=== PATIENT | female | born 1975 | race Caucasian/White ===

== ENCOUNTER 2019-07-08 08:31 | Outpatient (CLI) | payer MEDICARE, MEDICAID, SELFPAY ==
--- NOTE | 2019-07-08 08:54 | FL_ITS ---
WS: [id number] UPPER GI WITH AIR FLUOROSCOPY TIME: 2.4 minutes CLINICAL INFORMATION: S/P LAPAROSCOPIC SLEEVE GASTRECTOMY COMPARISON: None. FINDINGS: Swallowing: Normal. Esophagus: Active reflux is visualized into the mid and upper esophagus with tertiary contractions an d delayed emptying. Moderate esophageal hiatal hernia. Gastroesophageal reflux: Present Stomach: Prior postoperative changes gastric sleeve with normal emptying. Duodenum: Normal. Other findings: None. FL/FL upper GI w air [id number] IMPRESSION: 1. Active reflux is visualized into the mid and upper esophagus with tertiary contractions and delayed emptying. 2. Moderate esophageal hiatal hernia with active reflux. 3. Prior postoperative changes gastric sleeve with normal emptying. 4. Proximal duodenum is normal.
[2019-07-08 10:12] LABS: Basophils # 0.1 10^3/uL (0.0-0.1); Basophils % 0.8 %; Eosinophils # 0.6 10^3/uL (0.0-0.8); Eosinophils % 6.4 %; Hemoglobin 12.3 g/dL (11.5-15.3); Lymphocytes # 2.2 10^3/uL (0.8-4.8); Lymphocytes % 25.3 %; Mean Corpuscular HGB Conc 32.4 g/dL (30.0-36.0); Mean Corpuscular Volume 86.4 fL (81-99); Mean Platelet Volume 9.3 fL (7.4-10.4); Monocytes # 0.6 10^3/uL (0.2-0.9); Monocytes % 6.4 %; Neutrophils # 5.3 10^3/uL (1.8-7.7); Neutrophils % 60.8 %; Nucleated Red Blood Cells % 0 %; Platelet Count 318 10^3/cmm (130-400); Red Cell Distribution Width 13.1 % (12.1-15.1); White Blood Count 8.7 10^3/uL (4.0-10.0)
[2019-07-08 10:55] LABS: Alanine Aminotransferase 20 U/L (0-33); Albumin Level 4.6 g/dL (3.5-5.2); Alkaline Phosphatase 56 IU/L (35-105); Anion Gap 14.6 (5-19); Aspartate Amino Transferase 17 U/L (0-32); Blood Urea Nitrogen 8 mg/dL (6-20); Calcium 9.2 mg/Dl (8.6-10.0); Carbon Dioxide 26 mmol/L (22-29); Chloride 104 mmol/L (98-107); Chol HDL Ratio 3.05 mg/dL (0.0-4.40); Cholesterol 119 mg/dL (0-200); Ferritin 14 ng/mL (15-150); Globulin 2.1 g/dL (1.3-4.6); Glomerular Filtration Rate 175.9 mL/min (90-130); Glucose 161 mg/dL (74-109); HDL Cholesterol 39 mg/dL (60-100); Iron 55 ug/dL (37-145); LDL Cholesterol Calculated 63 mg/dL (50-129); LDL HDL Ratio 1.62 RATIO (0.00-3.22); Magnesium 1.9 mg/dL (1.7-2.3); Percent Saturation 16.9 % (20-50); Potassium 4.6 mmol/L (3.5-5.1); Sodium 140 mmol/L (136-145); Thyroid Stimulating Hormone 0.97 uIU/mL (0.27-4.20); Total Bilirubin 0.2 mg/dL (0.15-1.2); Total Iron Binding Capacity 325 mg/dL; Total Protein 6.7 g/dL (6.6-8.7); Triglycerides 83 mg/dL (0-150); Unsaturated Iron Binding 270 ug/dL (112-347); Vitamin B12 307 pg/mL (232-1245)
[2019-07-08 10:56] LABS: Estmated Average Glucose 177; Hemoglobin A1C 7.8 % (4.0-6.0)
[2019-07-08 11:03] LABS: Calcium 8.7 mg/dL (8.8-10.2); Parathyroid Hormone 59.3 pg/mL (15-65)
[2019-07-08 11:14] LABS: Folate Level 7.1 ng/mL (4.8-37.3)
[2019-07-11 20:46] LABS: Vit D 1,25 (Oh)2, Total 46 pg/mL (18-72); Vit D2 1,25 (Oh)2 <8 pg/mL; Vit D3 1,25 (Oh)2 46 pg/mL; Vitamin B1(Thiamin) Plas/Ser 20 nmol/L (8-30); Zinc Level, Serum or Plasma 66 mcg/dL (60-130)
== END 2019-07-08 08:32 | disposition home or self-care (01) ==
PROVIDERS: Visit Provider Surgery
DX: Z98.84 Bariatric surgery status (principal); Z90.3 Acquired absence of stomach [part of]; K44.9 Diaphragmatic hernia without obstruction or gangrene
CPT/HCPCS: 36415; 74246; 80053; 80061; 82310; 82607; 82652; 82728; 82746; 83036; 83540; 83550; 83735; 83970; 84425; 84443; 84630; 85025

== ENCOUNTER 2019-08-07 08:01 | Day surgery (SDC) | payer MEDICARE, MEDICAID, SELFPAY ==
[2019-08-06 08:48] VITALS: BMI 43.7
--- NOTE | 2019-08-07 08:17 | ANES.PREANE2 ---
Pre-Anesthetic Assessment Pre-Anesthetic Assessment: Height/Weight: Height 1.7 m Weight 126.552 kg Preop Diagnosis: GERD Proposed Procedure: Operation Date: 08/07/19 09:00 Proposed Procedures p EGD 15720 k21.9(Not Applicable) - Marino Estes MD Last Intake: 22:30 Social: Packs per day: 1/2 Pack years: 13 Exam: Pre-Anes Outpt Exam: alert and oriented x 3 Pulmonary: Pulmonary: Asthma GI: GI: GERD Metabolic: Metabolic: DM, Hyperlipidemia and Morbid obesity Comments: 13y, normally 120-150 Musc/skel: Musc/skel: Fibromyalgia and Lower Back Pain Comments: nonradiating Neuropsych: Neuropsych: Depression and SKAGGS (migraine 2 weeks ago, cluster) Anesthetic Plan: ASA status: III Anesthesia: MAC PFSH Anesthesia PFSH: Surgical History (Updated 07/18/19 @ 08:38 by Marino Estes MD) Status post laparoscopic sleeve gastrectomy (Acute 2016) Social History Smoking and tobacco status: current every day smoker cigarettes Alcohol intake: current Alcohol intake frequency: holidays/special occasions only Adopted: Yes Lives independently: Yes Household members: children service: No Current occupational status: disabled Current occupational exposures/hazards: No Pets and animals: Yes History of recent travel: No Special frank needs: No Agree to transfusion: Yes Financial difficulty paying for basics: Decline to Answer Data Anesthesia Cardiac Studies: No Data to Display
[2019-08-07 08:50] LABS: OR HCG Qualitative Urine Negative (Negative)
[2019-08-07 08:52] VITALS: BP 126/82; PULSE 81; RESP 18; TEMP 37.1; O2SAT 98
[2019-08-07] MEDS: sodium chloride 0.9% 1,000 ML 30 ML (08:55)
[2019-08-07 09:01] LABS: Glucose Point of Care 165 mg/dL (70-110)
--- NOTE | 2019-08-07 09:06 | PM.HPUD ---
H&P update H&P Update: DATE OF SURGERY/PROCEDURE: 08/07/19 DATE H&P PERFORMED: 07/17/19 H&P UPDATE INFORMATION: H&P completed within last 30 days and No changes to prior documentation PREOP DIAGNOSIS: Persistent GERD status post gastric sleeve PLANNED PROCEDURE: Operation Date: 08/07/19 09:00 Proposed Procedures p EGD 21220 k21.9(Not Applicable) - Marino Estes MD Full H&P Perinent History: Family History: Family History (Updated 07/17/19 @ 11:08 by LAUREN Larsen) Denies family history of Anesthesia complication Bleeding disorder Social History: Social History Smoking and tobacco status: current every day smoker cigarettes Alcohol intake: current Alcohol intake frequency: holidays/special occasions only Adopted: Yes Lives independently: Yes Household members: children service: No Current occupational status: disabled Current occupational exposures/hazards: No Pets and animals: Yes History of recent travel: No Special frank needs: No Agree to transfusion: Yes Financial difficulty paying for basics: Decline to Answer
[2019-08-07 09:24] VITALS: BP 127/83; PULSE 91; RESP 16; TEMP 36.3; O2SAT 98
--- NOTE | 2019-08-07 09:26 | ANE.PACU2 ---
 Inpatient post-anesthesia follow up: Airway intact: Yes Vital signs: Temperature 97.3 F Pulse Rate 91 Respiratory Rate 16 Blood Pressure 127/83 Pulse Oximetry 98 Oxygen Delivery Me thod Nasal Cannula Oxygen Flow Rate 3.0 Fraction of Inspir ed Oxygen Hydration adequate: Yes Nausea and vomiting: No Pain level: 1 Mental status: Baseline
[2019-08-07 09:43] VITALS: BP 117/84; PULSE 75; RESP 18; O2SAT 99
[2019-08-08 07:46] LABS: H. Pylori / CLO Test Negative
== END 2019-08-07 09:50 | disposition home or self-care (01) ==
PROVIDERS: Anesthesiology; Visit Provider Surgery
PROC: 0DJ08ZZ Inspection of Upper Intestinal Tract, Via Natural or Artificial Opening Endoscopic (ICD-10-PCS; CPT 43235; principal; 2019-08-07 09:00)
DX: K21.9 Gastro-esophageal reflux disease without esophagitis (principal); Z98.84 Bariatric surgery status; F17.210 Nicotine dependence, cigarettes, uncomplicated; J45.909 Unspecified asthma, uncomplicated; E11.9 Type 2 diabetes mellitus without complications; E78.5 Hyperlipidemia, unspecified; E66.01 Morbid (severe) obesity due to excess calories; Z68.41 Body mass index [BMI] 40.0-44.9, adult; M79.7 Fibromyalgia; Z79.84 Long term (current) use of oral hypoglycemic drugs; Z79.891 Long term (current) use of opiate analgesic; K44.9 Diaphragmatic hernia without obstruction or gangrene
CPT/HCPCS: 12345; 36416; 43239; 81025; 82962; 84703; 87077; J2704; J7030